=== PATIENT | female | born 1975 | race African-American/Black ===

== ENCOUNTER 2016-08-17 17:07 | Emergency (ER) | payer OTHER, MEDICAID ==
[2016-08-17 17:36] VITALS: BP 149/99
[2016-08-17] MEDS ORDERED: Ibuprofen 800 MG Tab PO ONE (17:48)
[2016-08-17] MEDS ORDERED: Ondansetron 4 MG Tab.DIS PO ONE (18:02)
--- NOTE | 2016-08-17 18:03 | EDM.PDOC ---
ED HPI GENERAL MEDICAL PROBLEM - General Chief Complaint: ENT Problem Stated Complaint: POSS STREP THROAT Time Seen by Provider: 08/17/16 17:50 Source of Information: Reports: Patient History Limitations: Reports: No limitations - History of Present Illness INITIAL COMMENTS - FREE TEXT/NARRATIVE: Patient is a 40-year-old female presents ED complaining of generalized body aches, nausea with emesis, sore throat, nonproductive cough, malaise, ear discomfort, and headache. States it started Ameya night and has progressively worsened throughout the course of the weeken. Has been experiencing tactile fever with chills but no documented fever noted. She has not taken any over-the -counter medications. She has been pushin the fluids but notes unable to keep foods down. Does not recall recent sick exposures. Has not obtained flu vaccination this year. PMH: Hypothyroidism, palpitations, left shoulder injury requiring surgery Current medications include: Percocet, propanolol, nature thyroid, control Duration: Constant, Getting worse, Waxing/waning Location: Reports: generalized Quality: Reports: Ache Severity: moderate Improves with: Reports: None Worsens with: Reports: None Associated Symptoms: Reports: cough, fever/chills, headaches, loss of appetite, malaise, nausea/vomiting, shortness of breath. Denies: chest pain, rash Treatments SALT LIFTER: Reports: Other (see below) Other Treatments SALT LIFTER: raw honey and vinegar - Related Data Allergies Allergy/AdvReac Type Severity Reaction Status Date / Time acetaminophen [From Vicodin] Allergy Intermediate Hives Verified 08/17/16 17:35 hydrocodone bitartrate Allergy Intermediate Hives Verified 08/17/16 17:35 [From Vicodin] Home Meds: Home Meds Acetaminophen/oxyCODONE [Percocet 325-5 MG] 1 - 2 tab PO Q6H PRN #20 tablet [Rx] Desogestrel-Ethinyl Estradiol [Emoquette 28 Day Tablet] 1 tab PO DAILY 01/05/15 [History] Metoprolol Tartrate [Lopressor] 25 mg PO DAILY 01/05/15 [History] Thyroid,Pork [Nature-Throid] 65 mg PO DAILY 01/05/15 [History] Oseltamivir [Tamiflu] 75 mg PO BID #10 cap 08/17/16 [Rx] Past Medical History Other Gastrointestinal History: Umbilico hernia Other OB/BYN History: csx, D&C Musculoskeletal History: Reports: Other (see below) Other Musculoskeletal History: torn rotator cuff to L shoulder Endocrine/Metabolic History: Reports: Hypothyroidism - Past Surgical History Other GI Surgeries/Procedures: November 09,2014 Umbilico Social & Family History - Tobacco Use Smoking Status *Q: Never Smoker Years of Tobacco use: 5 Used Tobacco, but Quit: Yes Month Tobacco Last Used: December Second Hand Smoke Exposure: No - Caffeine Use Caffeine Use: Reports: Tea - Recreational Drug Use Recreational Drug Use: No ED ROS GENERAL - Review of Systems Review Of Systems: See Below Constitutional: Reports: fever, chills, malaise, fatigue, decreased appetite HEENT: Reports: Ear pain, Throat pain, Throat swelling, Other (sinus congestion) Respiratory: Reports: shortness of breath, cough. Denies: wheezing, hemoptysis GI/Abdominal: Reports: Nausea, Vomiting. Denies: Abdominal pain, Constipation, Diarrhea : Reports: no symptoms Musculoskeletal: Reports: muscle pain (generalized) Neurological: Reports: headache ED EXAM, GENERAL - Physical Exam Exam: See Below Exam Limited By: No limitations General Appearance: alert, WD/WN, mild distress Ears: normal external exam, normal canal, hearing grossly normal, normal TMs Nose: normal inspection, no blood, nasal drainage, clear rhinorrhea Throat/Mouth: Normal inspection, Normal oropharynx, Normal voice, No airway compromise Head: atraumatic, normocephalic Neck: normal inspection, supple, non-tender, full range of motion. No: lymphadenopathy (L), lymphadenopathy (R) Respiratory/Chest: no respiratory distress, lungs clear, normal breath sounds, no accessory muscle use, chest non-tender Cardiovascular: normal peripheral pulses, regular rate, rhythm, no murmur GI/Abdominal: normal bowel sounds, soft, non tender, no distention Back Exam: normal inspection. No: CVA tenderness (L), CVA tenderness (R) Neurological: alert, oriented, CN II-XII intact, normal cognition, no motor/ sensory deficits Psychiatric: normal affect, normal mood Skin Exam: Warm, Dry, Intact, Normal color, No rash Course - Vital Signs Last Recorded V/S: Last Vital Signs Temp 99.1 F 08/17/16 18:10 Pulse 94 08/17/16 17:46 Resp 18 08/17/16 17:46 BP 149/99 H 08/17/16 17:31 Pulse Ox 99 08/17/16 17:46 - Orders/Labs/Meds Orders: Active Orders 24 hr Category Date Time Status CULTURE STREP A CONFIRMATION [] Stat Lab 08/17/16 17:30 Results STREP SCRN A RAPID W CULT CONF [] Stat Lab 08/17/16 17:30 Results Meds: Medications Discontinued Medications Generic Name Dose Route Start Last Admin Trade Name Ramon PRN Reason Stop Dose Admin Ibuprofen 800 mg 08/17/16 17:48 08/17/16 18:10 Motrin PO 08/17/16 17:49 800 mg ONETIME ONE Administration Ondansetron HCl 4 mg 08/17/16 18:02 08/17/16 18:12 Zofran Odt PO 08/17/16 18:03 4 mg ONETIME ONE Administration Oseltamivir Phosphate 75 mg 08/17/16 19:00 08/17/16 19:24 Tamiflu PO 08/17/16 19:01 75 mg ONETIME ONE Administration - Re-Assessments/Exams Free Text/Narrative Re-Assessment/Exam: 08/17/16 18:02 Strep throat screen, influenza screen, motrin 800 mg, and zofran 4mg ODT ordered. Influenza A was positive. Strep screen along with Influenza B was negative. Patient received first dose of tamiflu here in the E.D. She was discharged home with instructions. Prescription for tamiflu, zofran, and Tessalon Perles provided. In addition Dr. Munoz was provided patients family members prescriptions for tamiflu prophylactic treatment. Unfortunately patient left with no insty med prescriptions. I will call [facility] tomorrow morning to order prescriptions for zofran and Tessalon Perles. Departure - Departure Time of Disposition: 19:01 Disposition: Home, Self-Care 01 Condition: good Clinical Impression: Influenza A Prescriptions: Oseltamivir [Tamiflu] 75 mg PO BID #10 cap Instructions: Influenza, Adult, [id number] Referrals: Iqra Stephenson PA [Primary Care Provider] - Forms: ED Department Discharge, Return to Work/School Form Additional Instructions: Take tamiflu 75mg PO twice a day for 5 days. Utilize tylenol and ibuprofen in alternating for pain and fever. Take zofran 4mg ODT 1 tab every 6 hours for nausea. For cough take Tessalon Perles as prescribed. Push the fluids. Advance diet as tolerated. Ensure adequate rest. Refrain from contact with others for the next 7 days or until symptoms completely resolve. Tamiflu prescriptions have been provided for your family for prophylaxis treatment. Return to the E.D. as needed for any new or worsening symptoms. - My Orders Last 24 Hours: My Active Orders 08/17/16 17:30 CULTURE STREP A CONFIRMATION [RM] Stat STREP SCRN A RAPID W CULT CONF [RM] Stat - Assessment/Plan Last 24 Hours: My Active Orders 08/17/16 17:30 CULTURE STREP A CONFIRMATION [RM] Stat STREP SCRN A RAPID W CULT CONF [RM] Stat
[2016-08-17] MEDS ORDERED: Oseltamivir 75 MG Cap PO ONE (19:00)
== END 2016-08-17 19:24 | disposition home or self-care (01) ==
LOC: JD.ED 17:07
DX: J10.1 Influenza due to other identified influenza virus with other respiratory manifestations (principal); Z79.899 Other long term (current) drug therapy
CPT/HCPCS: 87081; 87430; 87804; 99283; A9270

== ENCOUNTER 2018-10-24 23:56 | Emergency (ER) | payer MEDICAID ==
[2018-10-25 00:14] VITALS: BP 130/97
[2018-10-25] MEDS ORDERED: Lidocaine 1% 10 ML MDV INJECT ONE (00:54)
[2018-10-25] MEDS ORDERED: HYDROmorphone 1 MG/ML Syringe IM ONE (00:54)
--- NOTE | 2018-10-25 01:24 | EDM.PDOC ---
ED HPI GENERAL MEDICAL PROBLEM - General Chief Complaint: General Stated Complaint: RECENT SURGERY appendix PAIN BLEEDING BELLY BUTTON Time Seen by Provider: 10/25/18 00:19 Source of Information: Reports: Patient, Family History Limitations: Reports: No Limitations - History of Present Illness INITIAL COMMENTS - FREE TEXT/NARRATIVE: The patient presents with bleeding and pain from her umbilicus. She had laproscopic appendectomy last Thursday at [facility] in [place] and she has been having pain but today she had some bleeding from her umbilicus and it appears the adhesive broke open and she had bleeding. She has no fever, chills, or cough. She has no dysuria or diarrhea. She does have some generalized pain but no more since the bleeding. Onset: Sudden Duration: Minutes: Location: Reports: Abdomen Quality: Reports: Sharp Severity: Moderate Improves with: Reports: None Worsens with: Reports: None Associated Symptoms: Reports: No Other Symptoms - Related Data Allergies Allergy/AdvReac Type Severity Reaction Status Date / Time hydrocodone bitartrate Allergy Intermediate Hives Verified 08/17/16 17:35 [From Vicodin] Home Meds: Home Meds Desogestrel-Ethinyl Estradiol [Emoquette 28 Day Tablet] 1 tab PO DAILY 01/05/15 [History] Metoprolol Tartrate [Lopressor] 25 mg PO DAILY 01/05/15 [History] Thyroid,Pork [Nature-Throid] 65 mg PO DAILY 01/05/15 [History] Amoxicillin/Potassium Clav [Augmentin 875-125 Tablet] 1 each PO BID #14 tablet 05/23/18 [Rx] Ondansetron [Zofran ODT] 4 mg PO Q6H PRN #18 tab.dis 05/23/18 [Rx] oxyCODONE HCl/Acetaminophen [Oxycodone-Acetaminophen 5-325] 1 each PO Q6HR PRN # 18 tablet 05/23/18 [Rx] Past Medical History Other Gastrointestinal History: Umbilico hernia Other EMBROIDERY SPECIALIST History: csx, D&C Musculoskeletal History: Reports: Other (See Below) Other Musculoskeletal History: torn rotator cuff to L shoulder Endocrine/Metabolic History: Reports: Hypothyroidism - Past Surgical History Other GI Surgeries/Procedures: November 09,m 2014 Umbilico Social & Family History - Caffeine Use Caffeine Use: Reports: Tea ED ROS GENERAL - Review of Systems Review Of Systems: See Below Constitutional: Reports: No Symptoms HEENT: Reports: No Symptoms Respiratory: Reports: No Symptoms Cardiovascular: Reports: No Symptoms Endocrine: Reports: No Symptoms GI/Abdominal: Reports: Abdominal Pain ED EXAM, GENERAL - Physical Exam Exam: See Below Exam Limited By: No Limitations General Appearance: Alert, No Apparent Distress Ears: Normal External Exam Nose: Normal Inspection Head: Atraumatic, Normocephalic Neck: Normal Inspection Respiratory/Chest: No Respiratory Distress, Lungs Clear, Normal Breath Sounds Cardiovascular: Regular Rate, Rhythm, No Edema, No Murmur GI/Abdominal: Soft, No Organomegaly, No Mass, Tender (Mild generalized tenderness. The umbilicus trochar incision site has no more adhesive and the top layer is open. There is no active bleeding now.), Other (0.5cm opening to the dermis in the umbilicus) ED GENERAL MEDICAL PROCEDURES - Laceration/Wound Repair Abdomen Lac/wound length in cm: 0.5 Appearance: Superficial Anesthetic Type: Local Local Anesthesia - Lidocaine (Xylocaine): 1% Plain Skin Prep: Saline Exploration/Debridement/Repair: Wound Explored, In a Bloodless Field, Explored to Base Closed with: Sutures Suture Size: 4-0 # of Sutures: 1 Suture Type: Interrupted, Simple, Other (Vicryl) Tetanus Status Addressed: Yes Complications: No Course - Vital Signs Last Recorded V/S: Last Vital Signs Temp 97.9 F 10/25/18 00:04 Pulse 82 10/25/18 00:04 Resp 16 10/25/18 00:04 BP 130/97 H 10/25/18 00:04 Pulse Ox 99 10/25/18 00:04 - Orders/Labs/Meds Meds: Medications Discontinued Medications Generic Name Dose Route Start Last Admin Trade Name Freq PRN Reason Stop Dose Admin Hydromorphone HCl 1 mg 10/25/18 00:54 10/25/18 01:27 Dilaudid IM 10/25/18 00:55 1 mg ONETIME ONE Administration Lidocaine HCl 10 ml 10/25/18 00:54 10/25/18 01:28 Xylocaine 1% INJECT 10/25/18 00:55 10 ml ONETIME ONE Administration - Re-Assessments/Exams Free Text/Narrative Re-Assessment/Exam: 10/25/18 02:08 I ordered dilaudid 1mg IM for pain and I sutured the wound shut. Departure - Departure Time of Disposition: 02:10 Disposition: Home, Self-Care 01 Condition: Good Clinical Impression: Wound dehiscence - Discharge Information *PRESCRIPTION DRUG MONITORING PROGRAM REVIEWED*: Not Applicable *COPY OF PRESCRIPTION DRUG MONITORING REPORT IN PATIENT HENRRY: Not Applicable Referrals: Nba Shankar MD [Primary Care Provider] - Forms: ED Department Discharge Additional Instructions: Clean the wound with warm soapy water 2 times per day and apply antibiotic ointment after. The suture is absorbable and it should come out in about a week to 14 days. Look for any signs of infection such as redness, swelling, pain or drainage. If you see any of these signs please return or see your doctor. You may need oral antibiotics.
== END 2018-10-25 02:24 | disposition home or self-care (01) ==
LOC: JD.ED 23:56
DX: T81.30XA Disruption of wound, unspecified, initial encounter (principal); Z88.6 Allergy status to analgesic agent; Z79.899 Other long term (current) drug therapy; Z98.890 Other specified postprocedural states
CPT/HCPCS: 12020; 96372; 99282; J1170; J2001; 12001; 99283